=== PATIENT | female | born 1990 | race Two or more races ===

== ENCOUNTER 2017-02-22 06:51 | Emergency (ER) | payer OTHER ==
[2017-02-22 07:40] VITALS: TEMP 98.6; BMI 30.2
--- NOTE | 2017-02-22 08:22 | PDOC ---
History of Present Illness - General History Source: Patient Exam Limitations: No Limitations - History of Present Illness Initial Comments: 02/22/17 08:44 26 yr old female with hx of hypothyroid who presents to the ED with swelling, pain and itching of the vagina. Patient states that she had unprotected sex with ex boyfriend who admitted hx of herpes. She is unsure of partner's HIV status. She notes that she started experiencing swelling and pain on Sunday shortly after the episode. She states that she has not had sexual intercourse with her since. She notes that her last period was last month and she is using IUD as control. She denies any fever, chills, or apparent rash. <Estela Rodriguez - Last Filed: 02/22/17 09:24> <Cindy Curtis - Last Filed: 02/22/17 10:34> - General Chief Complaint: Vaginal Sxs Stated Complaint: [employer] PROBLEM/PAIN&DISCHARGE Time Seen by Provider: 02/22/17 08:21 Past History <Estela Rodriguez - Last Filed: 02/22/17 09:24> - Past Medical History COPD: No Thyroid Disease: Yes (HYPO) - Suicide/Smoking/Psychosocial Hx Smoking History: Current every day smoker Have you smoked in the past 12 months: Yes Number of Cigarettes Smoked Daily: 5 Information on smoking cessation initiated: No <Cindy Curtis - Last Filed: 02/22/17 10:34> - Past Medical History Allergies/Adverse Reactions: Allergies Allergy/AdvReac Type Severity Reaction Status Date / Time No Known Allergies Allergy Verified 02/22/17 07:36 Home Medications: Ambulatory Orders Levothyroxine [Synthroid -] 175 mcg PO DAILY 02/22/17 Valacyclovir HCl [Valtrex] 1,000 mg PO BID #20 tablet 02/22/17 Review of Systems - Review of Systems Able to Perform ROS?: Yes Comments:: 02/22/17 08:45 GENERAL/CONSTITUTIONAL: No fever or chills. No weakness. HEAD, EYES, EARS, NOSE AND THROAT: No change in vision. No ear pain or discharge. No sore throat. GASTROINTESTINAL: No nausea, vomiting, diarrhea or constipation. GENITOURINARY: +vaginal swelling, itching and pain. No dysuria, frequency, or change in urination. CARDIOVASCULAR: No chest pain or shortness of breath. RESPIRATORY: No cough, wheezing, or hemoptysis. MUSCULOSKELETAL: No joint or muscle swelling or pain. No neck or back pain. SKIN: No rash NEUROLOGIC: No headache, vertigo, loss of consciousness, or change in strength/ sensation. ENDOCRINE: No increased thirst. No abnormal weight change. HEMATOLOGIC/LYMPHATIC: No anemia, easy bleeding, or history of blood clots. ALLERGIC/IMMUNOLOGIC: No hives or skin allergy. <Estela Rodriguez - Last Filed: 02/22/17 09:24> *Physical Exam - Vital Signs Last Vital Signs Temp Pulse Resp BP Pulse Ox 98.6 F 75 17 124/61 100 02/22/17 07:36 02/22/17 07:36 02/22/17 07:36 02/22/17 07:36 02/22/17 07:36 - Physical Exam Comments: 02/22/17 09:24 GENERAL: Awake, alert, and fully oriented, in no acute distress HEAD: No signs of trauma EYES: PERRLA, EOMI, sclera anicteric, conjunctiva clear ENT: Auricles normal inspection, hearing grossly normal, nares patent, oropharynx clear without exudates. Moist mucosa NECK: Normal ROM, supple, no lymphadenopathy, JVD, or masses LUNGS: Breath sounds equal, clear to auscultation bilaterally. No wheezes, and no crackles HEART: Regular rate and rhythm, normal S1 and S2, no murmurs, rubs or gallops ABDOMEN: Soft, nontender, normoactive bowel sounds. No guarding, no rebound. No masses EXTREMITIES: Normal range of motion, no edema. No clubbing or cyanosis. No cords, erythema, or tenderness NEUROLOGICAL: Cranial nerves II through XII grossly intact. Normal speech, normal gait SKIN: Warm, Dry, normal turgor, no rashes or lesions noted. PELVIC EXAM: +Area of redness and swelling on labia minora, denuded skin, no clear vesicular lesions seen. Vaginal vault is clear without blood or discharge. +IUD in place. Cervix is long and closed. <Estela Rodriguez - Last Filed: 02/22/17 09:24> - Vital Signs Last Vital Signs Temp Pulse Resp BP Pulse Ox 98.6 F 75 17 124/61 100 02/22/17 07:36 02/22/17 07:36 02/22/17 07:36 02/22/17 07:36 02/22/17 07:36 <Cindy Curtis - Last Filed: 02/22/17 10:34> Medical Decision Making - Medical Decision Making 02/22/17 10:28 patient presents with labial pain after an unprotected sexual encounter. On my exam, I see redness and swelling of the left labia majora without lesions. May represent early herpes. Since the patient is very uncomfortable, I will treat with valacyclovir. Patient advised to follow up with her [employer]. Rapid HIV is negative. Patient advised to have repeat testing in three months and to use protection until then. <Cindy Curtis - Last Filed: 02/22/17 10:34> *DC/Admit/Observation/Transfer - Attestations Scribe Attestion: 02/22/17 08:45 Documentation prepared by NIHARIKA Smith, acting as medical detailist for Cindy Curtis MD, /DO. <Estela Rodriguez - Last Filed: 02/22/17 09:24> - Discharge Dispostion Admit: No <Cindy Curtis - Last Filed: 02/22/17 10:34> Diagnosis at time of Disposition: Herpes - Discharge Dispostion Disposition: HOME Condition at time of disposition: Good - Prescriptions Prescriptions: Valacyclovir HCl [Valtrex] 1,000 mg PO BID #20 tablet - Patient Instructions Printed Discharge Instructions: DI for Genital Herpes Additional Instructions: return to the ED for severe pain, fever, spreading rash, other new or changing symptoms. - Post Discharge Activity Forms/Work/School Notes: Back to Work
[2017-02-22] MEDS ORDERED: KETOROLAC TROMETHAMINE 60 MG/2 ML VIAL IVPUSH ONE (08:36)
[2017-02-22] MEDS ORDERED: KETOROLAC TROMETHAMINE 60 MG/2 ML VIAL ONE (09:07)
[2017-02-22 10:16] LABS: HIV 1 & 2 AB NEGATIVE; HIV 1 AGp24 NEGATIVE
[2017-02-22 10:43] VITALS: BP 129/70; PULSE 80
== END 2017-02-22 10:43 | disposition home or self-care (01) ==
LOC: JER 06:51
PROC: 3E0333Z Introduction of Anti-inflammatory into Peripheral Vein, Percutaneous Approach (ICD-10-PCS; principal; 2017-02-22)
DX: A60.04 Herpesviral vulvovaginitis (principal)
CPT/HCPCS: 36415; 84703; 87389; 99282-25